=== PATIENT | female | born 1960 | race Caucasian/White ===

== ENCOUNTER 2017-03-11 01:01 | Emergency (ER) | payer MEDICARE ==
[~2017-03-11 01:01] MED LIST: CARB200T16 PO; CYMB60CA PO; LORA-474 PO; LORT5TAB PO; TYLE3 PO
[2017-03-11 01:04] VITALS: BP 127/79; PULSE 98; RESP 16; TEMP 97.5; O2SAT 98
[2017-03-11] MEDS ORDERED: TOPI200 PO (01:21)
[2017-03-11] MEDS ORDERED: CYAN1TAB24 PO (01:21)
[2017-03-11] MEDS ORDERED: SYNT88TA PO (01:21)
[2017-03-11] MEDS ORDERED: CELE100C PO (01:21)
[2017-03-11] MEDS ORDERED: SERO300T PO (01:21)
[2017-03-11] MEDS ORDERED: CLON1 PO (01:21)
[2017-03-11] MEDS ORDERED: TRAM50TA PO ×2 (01:21→02:35)
[2017-03-11] MEDS ORDERED: oxyCODONE/ACETAMINOPHEN 5 MG/325 MG TAB PO ONE (02:00)
--- NOTE | 2017-03-11 02:16 | RADRPT ---
EXAM DATE/TIME: 03/11/2017 02:03 [facility] COMPARISON: No previous studies available for comparison. INDICATIONS : Back pain, fall. MEDICAL HISTORY : None. SURGICAL HISTORY : None. ENCOUNTER: Initial ACUITY: 1 day PAIN SCORE: 0/10 LOCATION: Bilateral l-spine FINDINGS: Minimal levoscoliosis. Mild degenerative disc disease. Minimal grade 1 anterolisthesis of L4 on L5, l ikely degenerative. CONCLUSION: 1. No acute findings. Minimal anterolisthesis of L4 on L5. Brian Hummel MD on March 11, 2017 at 2:13 Board Certified Radiologist. This report was verified electronically.
--- NOTE | 2017-03-11 02:17 | RADRPT ---
EXAM DATE/TIME: 03/11/2017 02:04 [facility] COMPARISON: No previous studies available for comparison. INDICATIONS : Knee pain, fall. MEDICAL HISTORY : None. SURGICAL HISTORY : None. ENCOUNTER: Initial ACUITY: 1 day PAIN SCORE: 0/10 LOCATION: Left knee FINDINGS: There is moderate osteoarthritis the left knee with osteophyte formation. No acute fracture or sublux ation. No significant joint effusion. CONCLUSION: 1. Moderate osteoarthritis left knee. No acute bony abnormalities. Brian Hummel MD on March 11, 2017 at 2:14 Board Certified Radiologist. This report was verified electronically.
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
== END 2017-03-11 03:44 | disposition home or self-care (01) ==
LOC: NEPE 01:01
DX: M25.562 Pain in left knee (principal); S33.5XXA Sprain of ligaments of lumbar spine, initial encounter; M17.12 Unilateral primary osteoarthritis, left knee; F17.210 Nicotine dependence, cigarettes, uncomplicated; W18.39XA Other fall on same level, initial encounter; Y93.E1 Activity, personal bathing and showering; Y92.002 Bathroom of unspecified non-institutional (private) residence as the place of occurrence of the external cause
CPT/HCPCS: 72100; 73564; 99284

== ENCOUNTER 2017-10-31 19:39 | Emergency (ER) | payer SELFPAY ==
[~2017-10-31 19:39] MED LIST changes: -CARB200T16 PO; +CELE100C PO; +CLON1 PO; +CYAN1TAB24 PO; -CYMB60CA PO; -LORA-474 PO; -LORT5TAB PO; +SERO300T PO; +SYNT88TA PO; +TOPI200 PO; +TRAM50TA PO; -TYLE3 PO
[2017-10-31 19:45] VITALS: BP 138/81; PULSE 60; RESP 18; TEMP 98.2; O2SAT 96
[2017-10-31] MEDS ORDERED: BUTA1TAB44 (22:58)
[2017-10-31 23:16] VITALS: BP 141/83; PULSE 62; RESP 18; O2SAT 97
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
[2017-10-31] MEDS ORDERED: MORPHINE SULFATE 4 MG/ML INJ IM ONE (23:30)
[2017-10-31] MEDS ORDERED: KETOROLAC TROMETHAMINE 60 MG/2 ML (IM) VIAL IM ONE (23:30)
[2017-10-31] MEDS ORDERED: ONDANSETRON HCL 4 MG/2 ML VIAL IM ONE (23:30)
== END 2017-10-31 23:59 | disposition home or self-care (01) ==
LOC: NEPD 19:39
DX: G43.909 Migraine, unspecified, not intractable, without status migrainosus (principal); F17.200 Nicotine dependence, unspecified, uncomplicated
CPT/HCPCS: 96372; 99283; J1885; J2270; J2405